=== PATIENT | male | born 1980 | race Caucasian/White ===

== ENCOUNTER 2024-06-15 08:56 | Oncology outpatient (recurring) (ONCR) | payer BC, MEDICAID, SELFPAY ==
[2024-05-31 09:46] LABS: Basophils # 0.1 10^3/uL (0.0-0.1); Basophils % 0.5 %; Eosinophils # 0.3 10^3/uL (0.0-0.8); Eosinophils % 3.4 %; Hematocrit 39.6 % (37-53); Lymphocytes # 0.8 10^3/uL (0.8-4.8); Lymphocytes % 8.3 %; Mean Corpuscular HGB Conc 32.1 g/dL (30-55); Mean Corpuscular Hemoglobin 29.4 pg (27-33); Mean Corpuscular Volume 91.7 fl (82-101); Mean Platelet Volume 9.3 fL (7.4-10.4); Monocytes # 0.8 10^3/uL (0.2-0.9); Monocytes % 8.6 %; Neutrophils # 7.41 10^3/uL (1.8-7.7); Neutrophils % 78.9 %; Nucleated Red Blood Cells % 0 %; Platelet Count 274 10^3/cmm (157-399); Red Blood Count 4.32 10^6/uL (3.85-5.65); Red Cell Distribution Width 13.5 % (12.1-15.1)
[2024-05-31 10:02] LABS: Erythrocyte Sedimentation Rate 4 mm/hr (0-10)
[2024-05-31 10:12] LABS: Alanine Aminotransferase 8 U/L (0-41); Albumin Level 3.8 g/dL (3.5-5.2); Alkaline Phosphatase 66 U/L (40-130); Anion Gap 12.1 (5-19); Aspartate Amino Transferase 12 U/L (0-40); Blood Urea Nitrogen 10 mg/dL (6-20); Calcium 8.6 mg/dL (8.5-10.5); Carbon Dioxide 27 mmol/L (22-29); Chloride 105 mmol/L (98-107); Creatinine Clr Calc Pharmacy 92.4373; Globulin 2.4 g/dL (1.3-4.6); Glomerular Filtration Rate 91.7 mL/min (90-130); Glucose 97 mg/dL (65-115); Osmolality Calculated 289 mOsm/kg (285-295); Potassium 4.1 mmol/L (3.5-5.1); Sodium 140 mmol/L (136-145); Testosterone Total 292.9 ng/dL (249-836); Thyroid Stimulating Hormone 2.06 uIU/mL (0.27-4.20); Total Bilirubin 0.2 mg/dL (0.15-1.2); Total Protein 6.2 g/dL (6.6-8.7)
[2024-05-31 10:30] LABS: Ferritin 67 ng/mL (30-400); Iron 52 ug/dL (59-158); Lactate Dehydrogenase 135 U/L (135-225); Percent Saturation 17.2 % (20-50); Total Iron Binding Capacity 301 mcg/dl; Unsaturated Iron Binding 249 ug/dL (112-347)
[2024-05-31 10:38] LABS: LAB Peripheral Smear Sent for Review
[2024-05-31 10:46] LABS: Vitamin B12 264 pg/mL (232-1245)
[2024-06-01 15:58] LABS: Anti-Nuclear Antibody Screen NEGATIVE (NEGATIVE)
[2024-06-02 18:39] LABS: Immunoglobulin E 7359 kU/L (<OR=114)
[2024-06-15 10:50] LABS: Vitamin B12 345 pg/mL (232-1245)
[2024-06-18 15:00] LABS: Methylmalonic Acid 119 nmol/L (55-335)
== END 2024-06-18 23:59 | disposition home or self-care (01) ==
PROVIDERS: PCP Registered Nurse; Visit Provider Internal Medicine Medical Oncology
DX: D72.829 Elevated white blood cell count, unspecified
CPT/HCPCS: 36415; 80053; 82607; 82728; 82785; 83540; 83550; 83615; 83921; 84403; 84443; 85025; 85651; 86038; 86140

== ENCOUNTER → 2024-08-25 07:57 | Outpatient (BNVA) | payer BC, MEDICAID, SELFPAY | PROVIDERS: PCP Registered Nurse; Visit Provider Orthopaedic Surgery | DX: M54.2 Cervicalgia (principal) | CPT/HCPCS: 72050 ==

== ENCOUNTER → 2024-08-31 11:28 | Outpatient (BNVA) | payer BC, MEDICAID, SELFPAY | PROVIDERS: PCP Registered Nurse; Visit Provider Specialist | DX: G56.03 Carpal tunnel syndrome, bilateral upper limbs (principal) | CPT/HCPCS: 73130 ==

== ENCOUNTER 2024-09-09 06:59 | Outpatient (CLI) | payer BC, MEDICAID, SELFPAY ==
--- NOTE | 2024-09-09 07:15 | MR_ITS ---
WS: [id number] MRI CERVICAL SPINE NONCONTRAST HISTORY: neck pain COMPARISON: None available. Technique: Multiplanar, multisequence noncontrast imaging of the cervical spine. Mild straightening of the upper cervical lordosis. C4 retrolisthesis by 2 mm. Disc spaces are narrowe d and desiccated. There is a subtle area of increased T2 signal in the cervical cord at C4. There is increased addition al signal on the FLAIR sequence but this may be artifact. Craniocervical junction, C1 and C2 relationship, odontoid process and soft tissues are normal. C2-C3: Normal. C3-C4: Small central disc protrusion. Mild osteophytic ridging. Mild central and bilateral foraminal stenosis. C4-C5: Osteophytic ridging with facet joint arthritis. Mild central with mild to moderate bilateral f oraminal stenosis. C5-C6: Mild osteophytic ridging. Mild bilateral facet joint arthritis. C6-C7: Normal. C7-T1: Normal. Paraspinal soft tissue are normal. MR/MR cervical spin wo con* [id number] IMPRESSION: 1. C4 retrolisthesis by 2 mm. 2. No fractures or marrow edema. 3. Subtle increased signal in the central cervical cord at C4. Very nonspecifi c. This could be an area of myelomalacia or a demyelinating lesion. Consider ad ditional MRI evaluation of the cervical spine with contrast. 4. C3-4: Small central disc protrusion with osteophytic ridging. Mild central and bilateral foraminal stenosis. 5. C4-5: Mild central with mild to moderate bilateral foraminal stenosis due t o osteophyte and facet disease.
== END 2024-09-09 07:00 | disposition home or self-care (01) ==
LOC: RAD 07:00
PROVIDERS: PCP Registered Nurse; Visit Provider Orthopaedic Surgery
DX: M50.20 Other cervical disc displacement, unspecified cervical region (principal); M99.63 Osseous and subluxation stenosis of intervertebral foramina of lumbar region; M43.12 Spondylolisthesis, cervical region
CPT/HCPCS: 72141

== ENCOUNTER → 2024-11-28 09:18 | Outpatient (BNVA) | payer BC, MEDICAID, SELFPAY | PROVIDERS: PCP Registered Nurse; Visit Provider Specialist | DX: M47.22 Other spondylosis with radiculopathy, cervical region (principal); M25.511 Pain in right shoulder; M25.512 Pain in left shoulder | CPT/HCPCS: 73030 ==